=== PATIENT | female | born 1965 | race Hispanic/Latino ===

== ENCOUNTER 2019-10-10 11:53 | Inpatient (IN) | payer MEDICAID ==
[~2019-10-10] VITALS: Ht 160 cm; Wt 80.8 kg
[2019-10-10] MEDS ORDERED: SODIUM CHLORIDE 0.9% 1000ML 1,000 ML IV ONE ×2 (12:27→12:41)
[2019-10-10 12:34] LABS: BASOPHILS % (AUTO) 1.1 % (0.0-5.0); EOSINOPHILS % (AUTO) 1.1 % (0.0-8.0); HEMATOCRIT 30.1 % (36-48); LYMPHOCYTES % (AUTO) 29.2 % (21.0-51.0); MEAN CORPUSCULAR HEMOGLOBIN 29.6 pg (27.0-33.0); MEAN CORPUSCULAR HGB CONC 33.9 g/dL (32.0-36.0); MEAN CORPUSCULAR VOLUME 87.2 fL (79-99); MONOCYTES % (AUTO) 9.7 % (3.0-13.0); NEUTROPHILS % (AUTO) 45.6 % (40.0-77.0); NUCLEATED RED BLOOD CELLS 5.5 % (0.0-0.19); PLATELET COUNT (AUTO) 45 K/uL (130-400); RED BLOOD CELL COUNT(AUTO) 3.45 MIL/uL (4.00-5.50); RED CELL DISTRIBUTION WIDTH 13.7 % (11.0-15.5); WHITE BLOOD COUNT (AUTO) 17.1 K/uL (4.8-10.8)
[2019-10-10] MEDS ORDERED: DEXAMETHASONE SOD PHOSPHATE 10MG/ML 1ML VIAL ONE (12:40)
[2019-10-10] MEDS ORDERED: CEFTRIAXONE SODIUM 1 GM ONE (12:41)
[2019-10-10] MEDS ORDERED: AZITHROMYCIN 500MG+NS 250ML 250 ML IV ONE (12:41)
[2019-10-10 12:43] LABS: CARBON DIOXIDE 20 mmol/L (21-32); CHLORIDE 99 mmol/L (101-111); CREATININE 0.9 mg/dL (0.5-1.5); GLOMERULAR FILTR. RATE CALC 70 mL/min (>60); GLUCOSE,RANDOM 161 mg/dL (70-105); POTASSIUM 3.5 mmol/L (3.5-5.1); SODIUM SERUM 135 mmol/L (136-145); UREA NITROGEN, BLOOD 25 mg/dL (7-18)
[2019-10-10] MEDS ORDERED: ONDANSETRON HCL 4 MG/2 ML VIAL ONE ×2 (12:52→21:37)
[2019-10-10 12:53] LABS: INR 1.14 (0.85-1.15); PARTIAL THROMBOPLASTIN TIME 33.6 SEC (26.3-35.5); PROTHROMBIN TIME 12.2 SEC (9.6-11.6)
[2019-10-10 12:54] LABS: ALANINE AMINOTRANSFERASE 66 U/L (12-78); ALBUMIN 1.8 g/dL (3.5-5.0); ASPARTATE AMINOTRANSFERASE 156 U/L (10-37); BILIRUBIN,TOTAL 1.2 mg/dL (0.2-1.0); CREATINE KINASE, TOTAL 63 U/L (21-232); MYOGLOBIN 83 ng/mL (10-92); TOTAL PROTEIN, SERUM 5.7 g/dL (6.0-8.3); TROPONIN I < 0.04 ng/mL (0.00-0.06)
[2019-10-10 13:00] LABS: B-TYPE NATRIURETIC PEPTIDE 7 pg/mL (0-100)
[2019-10-10 13:45] LABS: BAND NEUTROPHILS % (MANUAL) 9 % (0-2); BASOPHILS % (MANUAL) 1 % (0-2); EOSINOPHILS % (MANUAL) 2 % (1-6); LYMPHOCYTES % (MANUAL) 19 % (22-44); MAN.DIFF COMMENT-IMPRESSION MANUAL DIFFERENTIAL; MONOCYTES % (MANUAL) 8 % (2-9); MYELOCYTES % 1 % (0-0); REACTIVE LYMPHOCYTES 4 % (0-0); SEGMENTED NEUTROPHILS % 56 % (40-70)
[2019-10-10] MEDS ORDERED: DOXYCYCLINE 100MG+NS 250ML IV SCH (17:00)
[2019-10-10] MEDS ORDERED: VANCOMYCIN PROTOCOL PER PHARMACY IV SCH (17:00)
[2019-10-10] MEDS ORDERED: ACETAMINOPHEN 325 MG TAB PO PRN ×2 (17:00)
[2019-10-10] MEDS ORDERED: VANCOMYCIN 1.5 GM in SODIUM CHLORIDE 0.9% 250 ML IV ONE (19:45)
[2019-10-10] MEDS ORDERED: ERGOCALCIFEROL (VITAMIN D2) 50,000 UNIT CAPSULE PO ONE (19:45)
[2019-10-10] MEDS ORDERED: ZINC SULFATE 220 CAPSULE ONE (20:33)
[2019-10-10] MEDS ORDERED: ERGOCALCIFEROL (VITAMIN D2) 50,000 UNIT CAPSULE ONE (20:33)
[2019-10-10] MEDS ORDERED: ASCORBIC ACID 500 MG TAB ONE (20:33)
[2019-10-10] MEDS ORDERED: METHYLPREDNISOLONE SOD SUCC 40MG/ML 1ML ONE (20:33)
[2019-10-10] MEDS ORDERED: FAMOTIDINE/PF 20 MG/2 ML VIAL IV ONE (20:34)
[2019-10-10] MEDS ORDERED: ENOXAPARIN SODIUM 40 MG/0.4 ML SYRINGE SQ ONE (20:34)
[2019-10-10] MEDS ORDERED: ENOXAPARIN SODIUM 40 MG/0.4 ML SYRINGE SQ SCH (21:00)
[2019-10-11] MEDS: CEFEPIME HCL 2 GM VIAL IVP SCH ×3 (01:00→17:00)
[2019-10-11] MEDS ORDERED: CEFEPIME HCL 2 GM VIAL ONE ×2 (01:19→07:53)
[2019-10-11] MEDS ORDERED: DOXYCYCLINE 100MG+NS 250ML 250 ML IV ONE (01:19)
[2019-10-11] MEDS: SODIUM CHLORIDE 0.9% 1000ML 1,000 ML IV SCH ×2 (03:00→13:15)
[2019-10-11] MEDS ORDERED: VANCOMYCIN 1GM+NS 250ML 250 ML IV SCH (06:00)
[2019-10-11 06:50] LABS: ALBUMIN 1.4 g/dL (3.5-5.0); BILIRUBIN,TOTAL 0.6 mg/dL (0.2-1.0); CREATININE 0.6 mg/dL (0.5-1.5); POTASSIUM 3.6 mmol/L (3.5-5.1); TOTAL PROTEIN, SERUM 4.6 g/dL (6.0-8.3)
[2019-10-11 06:52] LABS: BASOPHILS % (AUTO) 0.8 % (0.0-5.0); HEMATOCRIT 24.5 % (36-48); LYMPHOCYTES % (AUTO) 29.1 % (21.0-51.0); MEAN CORPUSCULAR HEMOGLOBIN 29.6 pg (27.0-33.0); MEAN CORPUSCULAR HGB CONC 33.1 g/dL (32.0-36.0); MEAN CORPUSCULAR VOLUME 89.4 fL (79-99); MONOCYTES % (AUTO) 8.1 % (3.0-13.0); NEUTROPHILS % (AUTO) 49.2 % (40.0-77.0); NUCLEATED RED BLOOD CELLS 3.6 % (0.0-0.19); PLATELET COUNT (AUTO) 27 K/uL (130-400); RED BLOOD CELL COUNT(AUTO) 2.74 MIL/uL (4.00-5.50)
[2019-10-11 07:06] LABS: BILIRUBIN,URINE MODERATE (NEGATIVE); COLOR,URINE BROWN (YELLOW); GLUCOSE, URINE (UA) 100 mg/dL (NEGATIVE); KETONES,URINE 15 mg/dL (NEGATIVE); LEUKOCYTE ESTERASE ,URINE NEGATIVE (NEGATIVE); NITRATE,URINE POSITIVE (NEGATIVE); OCCULT BLOOD,URINE NEGATIVE (NEGATIVE); PH,URINE 6.5 (5.0-8.0); PROTEIN,URINE 30 mg/dL (NEGATIVE); UROBILINOGEN,URINE 0.2 mg/dL (0.2-1.0)
[2019-10-11 07:20] LABS: APPEARANCE,URINE SLIGHTLY CLOUDY (CLEAR)
[2019-10-11 07:37] LABS: CRP QUANTITATIVE 104.2 mg/L (0.00-9.0)
[2019-10-11 07:38] LABS: BACTERIA,URINE Few /HPF (None Seen)
[2019-10-11] MEDS ORDERED: METHYLPREDNISOLONE SOD SUCC 40MG/ML 1ML ONE ×2 (07:52→20:43)
[2019-10-11] MEDS ORDERED: ZINC SULFATE 220 CAPSULE ONE (07:53)
[2019-10-11] MEDS ORDERED: ASCORBIC ACID 500 MG TAB ONE (07:53)
[2019-10-11] MEDS ORDERED: ENOXAPARIN SODIUM 40 MG/0.4 ML SYRINGE SQ ONE (07:53)
[2019-10-11] MEDS ORDERED: FAMOTIDINE/PF 20 MG/2 ML VIAL IV ONE ×2 (07:54→20:43)
[2019-10-11] MEDS ORDERED: ENOXAPARIN SODIUM 40 MG/0.4 ML SYRINGE SQ SCH (09:00)
[2019-10-11] MEDS: ASCORBIC ACID 500 MG TAB PO SCH (09:00)
[2019-10-11] MEDS ORDERED: ENOXAPARIN SODIUM 30 MG/0.3 ML SQ SCH (09:00)
[2019-10-11] MEDS: METHYLPREDNISOLONE SOD SUCC 40MG/ML 1ML IVP SCH ×3 (09:00→21:00)
[2019-10-11] MEDS: FAMOTIDINE/PF 20 MG/2 ML VIAL IV SCH ×2 (09:00→21:00)
[2019-10-11] MEDS: ZINC SULFATE 220 CAPSULE PO SCH (12:00)
[2019-10-11] MEDS ORDERED: ONDANSETRON HCL 4 MG/2 ML VIAL ONE (12:13)
[2019-10-11] MEDS ORDERED: ONDANSETRON HCL 4 MG/2 ML VIAL IVP PRN (15:45)
[2019-10-11] MEDS ORDERED: IOHEXOL 350 MG/ML 100ML INFUS..BTL IV ONE (16:05)
--- NOTE | 2019-10-11 19:30 | NUR ---
PM Assessment Received pt with NS at 75cc/hr infusing well, routine assessment done, plan of care discuss, made aware pending labs in AM with pending consult with Dr. Moy as claimed still was not seen by MD. Pt showed a mass to the right anterior side of her upper thigh, hard to palpate, margin marking done, per pt claimed that Dr. Moy did a biopsy on such area before, with the mass slowly growing. Pt made aware we will notify MD about it. Pt currently denies discomfort on O2 at 4L/NC, claimed breathing just fine.
[2019-10-11 20:00] VITALS: BP 118/60
[2019-10-12] VITALS: BP 109/62
[2019-10-12] MEDS: CEFEPIME HCL 2 GM VIAL IVP SCH ×3 (01:00→17:00)
[2019-10-12] MEDS ORDERED: CEFEPIME HCL 2 GM VIAL ONE ×2 (01:39→08:48)
[2019-10-12] MEDS: SODIUM CHLORIDE 0.9% 1000ML 1,000 ML IV SCH ×2 (02:35→15:55)
[2019-10-12 04:00] VITALS: BP 105/61
[2019-10-12] MEDS ORDERED: VANCOMYCIN 1GM+NS 250ML 250 ML IV ONE ×2 (05:10→18:52)
[2019-10-12 05:35] LABS: BASOPHILS % (AUTO) 0.9 % (0.0-5.0); EOSINOPHILS % (AUTO) 0.4 % (0.0-8.0); HEMATOCRIT 24.4 % (36-48); LYMPHOCYTES % (AUTO) 25.5 % (21.0-51.0); MEAN CORPUSCULAR HGB CONC 32.8 g/dL (32.0-36.0); MEAN CORPUSCULAR VOLUME 88.4 fL (79-99); MONOCYTES % (AUTO) 10.3 % (3.0-13.0); NEUTROPHILS % (AUTO) 50.8 % (40.0-77.0); NUCLEATED RED BLOOD CELLS 4.9 % (0.0-0.19); PLATELET COUNT (AUTO) 30 K/uL (130-400); RED BLOOD CELL COUNT(AUTO) 2.76 MIL/uL (4.00-5.50); RED CELL DISTRIBUTION WIDTH 14.2 % (11.0-15.5); WHITE BLOOD COUNT (AUTO) 14.4 K/uL (4.8-10.8)
[2019-10-12 06:04] LABS: ALBUMIN 1.5 g/dL (3.5-5.0); BILIRUBIN,TOTAL 0.7 mg/dL (0.2-1.0); CREATININE 0.7 mg/dL (0.5-1.5); POTASSIUM 3.8 mmol/L (3.5-5.1); TOTAL PROTEIN, SERUM 4.5 g/dL (6.0-8.3)
[2019-10-12] MEDS ORDERED: LOPERAMIDE HCL 2 MG CAP PO SCH ×2 (08:00→18:00)
[2019-10-12] MEDS ORDERED: METHYLPREDNISOLONE SOD SUCC 40MG/ML 1ML ONE ×2 (08:47→19:56)
[2019-10-12] MEDS ORDERED: ASCORBIC ACID 500 MG TAB ONE (08:47)
[2019-10-12] MEDS ORDERED: FAMOTIDINE/PF 20 MG/2 ML VIAL IV ONE ×2 (08:48→19:57)
[2019-10-12] MEDS ORDERED: LOPERAMIDE HCL 2 MG CAP PO ONE ×2 (08:48→18:24)
[2019-10-12] MEDS ORDERED: ZINC SULFATE 220 CAPSULE ONE (08:48)
[2019-10-12] MEDS: ASCORBIC ACID 500 MG TAB PO SCH (09:00)
[2019-10-12] MEDS: FAMOTIDINE/PF 20 MG/2 ML VIAL IV SCH ×2 (09:00→21:00)
[2019-10-12] MEDS: METHYLPREDNISOLONE SOD SUCC 40MG/ML 1ML IVP SCH ×3 (09:00→21:00)
[2019-10-12] MEDS: ZINC SULFATE 220 CAPSULE PO SCH (12:00)
[2019-10-12] MEDS ORDERED: ONDANSETRON HCL 4 MG/2 ML VIAL ONE (13:29)
[2019-10-12] MEDS ORDERED: LACTOBACILLUS RHAMNOSUS GG 1 EACH CAP.SPRINK PO SCH (18:00)
[2019-10-12] MEDS ORDERED: METRONIDAZOLE 500 MG TABLET PO SCH (18:00)
[2019-10-12] MEDS: METRONIDAZOLE 500 MG TABLET PO SCH (18:00)
--- NOTE | 2019-10-12 19:12 | NUR ---
UNABLE TO REACH FAMILY SW attempted to contact patient's family to complete assessment but was only able to leave a message. SW will attempt to reach at a later time.
[2019-10-12] MEDS: LACTOBACILLUS RHAMNOSUS GG 1 EACH CAP.SPRINK PO SCH (21:00)
[2019-10-13] MEDS ORDERED: CEFEPIME HCL 2 GM VIAL ONE ×3 (00:18→17:05)
[2019-10-13] MEDS ORDERED: SODIUM CHLORIDE 0.9% 50 ML IV ONE ×3 (00:46→17:06)
[2019-10-13] MEDS: CEFEPIME HCL 2 GM VIAL IVP SCH ×3 (01:00→17:00)
[2019-10-13] MEDS: METRONIDAZOLE 500 MG TABLET PO SCH ×3 (02:00→18:00)
[2019-10-13] MEDS: SODIUM CHLORIDE 0.9% 1000ML 1,000 ML IV SCH ×2 (05:15→18:35)
[2019-10-13] MEDS ORDERED: VANCOMYCIN 1GM+NS 250ML 250 ML IV ONE ×2 (05:33→17:05)
[2019-10-13] MEDS: FAMOTIDINE/PF 20 MG/2 ML VIAL IV SCH ×2 (09:00→21:00)
[2019-10-13] MEDS: ASCORBIC ACID 500 MG TAB PO SCH (09:00)
[2019-10-13] MEDS: METHYLPREDNISOLONE SOD SUCC 40MG/ML 1ML IVP SCH ×3 (09:00→21:00)
[2019-10-13] MEDS: LACTOBACILLUS RHAMNOSUS GG 1 EACH CAP.SPRINK PO SCH ×3 (09:00→21:00)
[2019-10-13 09:10] LABS: BASOPHILS % (AUTO) 0.7 % (0.0-5.0); EOSINOPHILS % (AUTO) 0.2 % (0.0-8.0); HEMATOCRIT 23.8 % (36-48); LYMPHOCYTES % (AUTO) 22.2 % (21.0-51.0); MEAN CORPUSCULAR HEMOGLOBIN 29.6 pg (27.0-33.0); MEAN CORPUSCULAR HGB CONC 33.6 g/dL (32.0-36.0); MEAN CORPUSCULAR VOLUME 88.1 fL (79-99); MONOCYTES % (AUTO) 9.9 % (3.0-13.0); NEUTROPHILS % (AUTO) 55.3 % (40.0-77.0); NUCLEATED RED BLOOD CELLS 6.2 % (0.0-0.19); PLATELET COUNT (AUTO) 20 K/uL (130-400); RED CELL DISTRIBUTION WIDTH 14.4 % (11.0-15.5); WHITE BLOOD COUNT (AUTO) 13.2 K/uL (4.8-10.8)
[2019-10-13] MEDS ORDERED: ASCORBIC ACID 500 MG TAB ONE (09:43)
[2019-10-13] MEDS ORDERED: METHYLPREDNISOLONE SOD SUCC 40MG/ML 1ML ONE ×3 (09:43→20:36)
[2019-10-13] MEDS ORDERED: METRONIDAZOLE 500 MG TABLET ONE ×2 (09:43→17:05)
[2019-10-13] MEDS ORDERED: ZINC SULFATE 220 CAPSULE ONE (09:43)
[2019-10-13] MEDS ORDERED: FAMOTIDINE/PF 20 MG/2 ML VIAL IV ONE ×2 (09:44→20:36)
[2019-10-13 09:55] LABS: ALBUMIN 1.5 g/dL (3.5-5.0); BAND NEUTROPHILS % (MANUAL) 9 % (0-2); BILIRUBIN,TOTAL 0.7 mg/dL (0.2-1.0); CREATININE 0.7 mg/dL (0.5-1.5); CRP QUANTITATIVE 33.9 mg/L (0.00-9.0); EOSINOPHILS % (MANUAL) 1 % (1-6); LYMPHOCYTES % (MANUAL) 18 % (22-44); MAN.DIFF COMMENT-IMPRESSION MANUAL DIFFERENTIAL; MONOCYTES % (MANUAL) 9 % (2-9); POTASSIUM 3.7 mmol/L (3.5-5.1); SEGMENTED NEUTROPHILS % 63 % (40-70); TOTAL PROTEIN, SERUM 4.3 g/dL (6.0-8.3)
[2019-10-13] MEDS ORDERED: ONDANSETRON HCL 4 MG/2 ML VIAL ONE ×2 (11:36→18:05)
[2019-10-13] MEDS: ZINC SULFATE 220 CAPSULE PO SCH (12:00)
--- NOTE | 2019-10-13 14:11 | NUR ---
cm note call made to listed phone# unable to reach pt/family. info obtained from chart review. pt resides at home with spouse, independent with adls and self care. no dme. no services. [place] [facility] [place] [facility]. Addendum: 10/13/19 at 1415 by ROSITA GUZMAN Amended: Links added.
[2019-10-13] MEDS ORDERED: APIXABAN 2.5 MG TABLET PO ONE (17:17)
[2019-10-13] MEDS ORDERED: APIXABAN 5 MG TABLET PO SCH (21:00)
[2019-10-14] MEDS: CEFEPIME HCL 2 GM VIAL IVP SCH ×3 (01:00→17:00)
[2019-10-14] MEDS ORDERED: METRONIDAZOLE 500 MG TABLET ONE ×2 (01:17→08:10)
[2019-10-14] MEDS ORDERED: CEFEPIME HCL 2 GM VIAL ONE ×2 (01:18→08:29)
[2019-10-14] MEDS: METRONIDAZOLE 500 MG TABLET PO SCH ×3 (02:00→18:00)
[2019-10-14] MEDS ORDERED: VANCOMYCIN 1GM+NS 250ML 250 ML IV ONE ×2 (05:33→18:10)
[2019-10-14] MEDS ORDERED: ONDANSETRON HCL 4 MG/2 ML VIAL ONE (06:23)
[2019-10-14] MEDS ORDERED: ACETAMINOPHEN 325 MG TAB ONE (06:28)
[2019-10-14 06:33] LABS: ALBUMIN 1.4 g/dL (3.5-5.0); BILIRUBIN,TOTAL 0.8 mg/dL (0.2-1.0); CREATININE 0.7 mg/dL (0.5-1.5); MAGNESIUM 1.8 mg/dL (1.80-2.40); POTASSIUM 4.1 mmol/L (3.5-5.1); TOTAL PROTEIN, SERUM 4.2 g/dL (6.0-8.3)
[2019-10-14] MEDS: SODIUM CHLORIDE 0.9% 1000ML 1,000 ML IV SCH ×2 (07:55→21:15)
[2019-10-14] MEDS ORDERED: ASCORBIC ACID 500 MG TAB ONE (08:10)
[2019-10-14] MEDS ORDERED: METHYLPREDNISOLONE SOD SUCC 40MG/ML 1ML ONE ×2 (08:10→20:57)
[2019-10-14] MEDS ORDERED: ZINC SULFATE 220 CAPSULE ONE (08:11)
[2019-10-14] MEDS ORDERED: FAMOTIDINE/PF 20 MG/2 ML VIAL IV ONE ×2 (08:30→20:58)
[2019-10-14] MEDS: LACTOBACILLUS RHAMNOSUS GG 1 EACH CAP.SPRINK PO SCH ×3 (09:00→21:00)
[2019-10-14] MEDS: ASCORBIC ACID 500 MG TAB PO SCH (09:00)
[2019-10-14] MEDS: FAMOTIDINE/PF 20 MG/2 ML VIAL IV SCH ×2 (09:00→21:00)
[2019-10-14] MEDS: METHYLPREDNISOLONE SOD SUCC 40MG/ML 1ML IVP SCH ×3 (09:00→21:00)
[2019-10-14] MEDS: ALBUTEROL INHALER 90MCG/INH IH SCH ×5 (09:15→22:00)
[2019-10-14] MEDS: ZINC SULFATE 220 CAPSULE PO SCH (12:00)
[2019-10-14] MEDS ORDERED: FUROSEMIDE 10 MG/ML 4ML VIAL ONE ×2 (12:44→20:57)
[2019-10-14] MEDS: FUROSEMIDE 10 MG/ML 4ML VIAL IVP SCH (13:00)
[2019-10-14] MEDS ORDERED: IOHEXOL-350 75 ML VIAL IV ONE (18:22)
[2019-10-14] MEDS ORDERED: ENOXAPARIN SODIUM 40 MG/0.4 ML SYRINGE SQ ONE (20:58)
[2019-10-15] MEDS ORDERED: METRONIDAZOLE 500MG/100ML BAG 100 ML ONE (00:19)
[2019-10-15] MEDS ORDERED: ALBUTEROL INHALER 90MCG/INH IH ONE (00:19)
[2019-10-15] MEDS ORDERED: CEFTRIAXONE SODIUM 1 GM ONE (00:19)
[2019-10-15] MEDS ORDERED: ACETAMINOPHEN 325 MG TAB ONE ×2 (00:20→04:37)
[2019-10-15] MEDS ORDERED: ONDANSETRON HCL 4 MG/2 ML VIAL ONE ×4 (00:51→15:25)
[2019-10-15] MEDS: FUROSEMIDE 10 MG/ML 4ML VIAL IVP SCH ×3 (01:00→23:41)
[2019-10-15] MEDS: CEFEPIME HCL 2 GM VIAL IVP SCH ×4 (01:00→23:41)
[2019-10-15] MEDS: METRONIDAZOLE 500 MG TABLET PO SCH ×3 (02:00→18:00)
[2019-10-15] MEDS: ALBUTEROL INHALER 90MCG/INH IH SCH ×7 (02:00→23:50)
[2019-10-15] MEDS ORDERED: VANCOMYCIN 1GM+NS 250ML 250 ML IV ONE ×2 (04:23→18:04)
[2019-10-15] MEDS ORDERED: MORPHINE SULFATE 2 MG/ML 1ML SYG IVP PRN (04:45)
[2019-10-15] MEDS ORDERED: MORPHINE SULFATE 2 MG/ML 1ML SYG ONE ×2 (04:51→15:25)
[2019-10-15] MEDS ORDERED: METHYLPREDNISOLONE SOD SUCC 40MG/ML 1ML ONE ×2 (07:38→20:10)
[2019-10-15] MEDS ORDERED: ASCORBIC ACID 500 MG TAB ONE (07:38)
[2019-10-15] MEDS ORDERED: FUROSEMIDE 10 MG/ML 4ML VIAL ONE (07:39)
[2019-10-15] MEDS ORDERED: METRONIDAZOLE 500 MG TABLET ONE (07:39)
[2019-10-15] MEDS ORDERED: CEFEPIME HCL 2 GM VIAL ONE (07:39)
[2019-10-15] MEDS ORDERED: ZINC SULFATE 220 CAPSULE ONE (07:39)
[2019-10-15] MEDS ORDERED: FAMOTIDINE/PF 20 MG/2 ML VIAL IV ONE (07:40)
[2019-10-15] MEDS ORDERED: ENOXAPARIN SODIUM 40 MG/0.4 ML SYRINGE SQ ONE (07:40)
[2019-10-15] MEDS: METHYLPREDNISOLONE SOD SUCC 40MG/ML 1ML IVP SCH ×3 (09:00→21:00)
[2019-10-15] MEDS: FAMOTIDINE/PF 20 MG/2 ML VIAL IV SCH ×2 (09:00→21:00)
[2019-10-15] MEDS: LACTOBACILLUS RHAMNOSUS GG 1 EACH CAP.SPRINK PO SCH ×3 (09:00→21:00)
[2019-10-15] MEDS: ENOXAPARIN SODIUM 40 MG/0.4 ML SYRINGE SQ SCH (09:00)
[2019-10-15] MEDS: ASCORBIC ACID 500 MG TAB PO SCH (09:00)
[2019-10-15] MEDS: SODIUM CHLORIDE 0.9% 1000ML 1,000 ML IV SCH ×2 (10:35→23:41)
[2019-10-15 11:54] LABS: BASOPHILS % (AUTO) 0.8 % (0.0-5.0); EOSINOPHILS % (AUTO) 1.3 % (0.0-8.0); HEMATOCRIT 25.8 % (36-48); LYMPHOCYTES % (AUTO) 32.9 % (21.0-51.0); MEAN CORPUSCULAR HEMOGLOBIN 29.4 pg (27.0-33.0); MEAN CORPUSCULAR HGB CONC 33.3 g/dL (32.0-36.0); MEAN CORPUSCULAR VOLUME 88.1 fL (79-99); MONOCYTES % (AUTO) 7.4 % (3.0-13.0); NUCLEATED RED BLOOD CELLS 9.2 % (0.0-0.19); PLATELET COUNT (AUTO) 23 K/uL (130-400); RED BLOOD CELL COUNT(AUTO) 2.93 MIL/uL (4.00-5.50); RED CELL DISTRIBUTION WIDTH 14.9 % (11.0-15.5); WHITE BLOOD COUNT (AUTO) 15.7 K/uL (4.8-10.8)
[2019-10-15] MEDS: ZINC SULFATE 220 CAPSULE PO SCH (12:00)
[2019-10-15 12:38] LABS: ALBUMIN 1.4 g/dL (3.5-5.0); BILIRUBIN,TOTAL 0.9 mg/dL (0.2-1.0); CREATININE 0.9 mg/dL (0.5-1.5); POTASSIUM 4.4 mmol/L (3.5-5.1); TOTAL PROTEIN, SERUM 4.1 g/dL (6.0-8.3)
[2019-10-15 13:11] LABS: BAND NEUTROPHILS % (MANUAL) 5 % (0-2); LYMPHOCYTES % (MANUAL) 9 % (22-44); MAN.DIFF COMMENT-IMPRESSION MANUAL DIFFERENTIAL; MONOCYTES % (MANUAL) 3 % (2-9); SEGMENTED NEUTROPHILS % 83 % (40-70)
[2019-10-15 13:12] LABS: PLATELET MORPHOLOGY COMMENT MARKED DECREASE
[2019-10-15] MEDS ORDERED: SODIUM CHLORIDE 0.9% 1000ML 1,000 ML IV SCH (13:30)
[2019-10-15] MEDS ORDERED: SODIUM CHLORIDE 0.9% 100 ML IV ONE (17:26)
[2019-10-15] MEDS ORDERED: FAMOTIDINE 20MG TAB 20 MG TAB ONE (20:10)
[2019-10-15 23:35] VITALS: BP 134/77
[2019-10-16] VITALS (27 sets, daily range): BP systolic 69–205; BP diastolic 22–103
[2019-10-16] MEDS: METRONIDAZOLE 500 MG TABLET PO SCH ×3 (00:26→16:38)
[2019-10-16] MEDS ORDERED: ALPRAZOLAM 0.5 MG TABLET ONE (02:23)
[2019-10-16] MEDS ORDERED: ALPRAZOLAM 0.5 MG TABLET PO ONE (02:30)
--- NOTE | 2019-10-16 03:03 | NUR ---
SPOKE WITH BRENDEN, RESPIRATORY THERAPIST, ON THE PHONE TO ASK HIM FOR THE INCENTIVE SPIROMETER. HE SAID HE WOULD BRING IT
--- NOTE | 2019-10-16 05:40 | NUR ---
patient anxious, diaphoretic, and pale. paged [facility] and she ordered a stat arterial blood gas and nonrebreather 15 liters. i called a rapid response. [facility] ordered a bolus of 500 ml of sodium chloride which we gave on the 20 gauge iv catheter on her left chest. we were having trouble starting another IV, we attempted about 20 times and an ER nurse tried osseous route and failed. Jo placed a 22 gauge iv catheter on her right hand and gave norepinephrine bitarte drip 18 mcg/min. 2 ampules of sodium chloride were given in the 20 gauge iv catheter at 0550. another 2 ampules of sodium chloride were diluted in 1 liter of dextrose 5%. a total of 1.5 liters of sodium chloride bolus were given (500 ml each bolus). an EKG stat was ordered along with a rainbow of labs. the arterial blood gas results were abnormal. patient's blood pressure before the levophed was 47/21 and after the levophen and 1.5 liters bolus it was 121/77. patient's accucheck was 154. patient claimed she couldn't see and was still having difficulty breathing and using her intracostal muscles to breath. patient taken by david loivas, to room 1 B in daypatient. i called report to shanna at 0630 am and patient taken at 06:40.
[2019-10-16] MEDS ORDERED: SODIUM CHLORIDE 0.9% 500ML 500 ML IV ONE (05:49)
[2019-10-16] MEDS ORDERED: NOREPINEPHRINE BITARTRATE 1 MG/1 ML ML IV ONE (05:55)
[2019-10-16 05:58] LABS: ABG BASE EXCESS -26.2 mmol/L (-2.0-3.0); ABG OXYGEN SATURATION 96.4 % (95.0-99.0); ABG PCO2 35 mmHg (32-45)
[2019-10-16] MEDS: ALBUTEROL INHALER 90MCG/INH IH SCH ×2 (06:00→10:00)
[2019-10-16] MEDS ORDERED: SODIUM BICARB 50MEQ 50ML VIAL ONE ×2 (06:04→07:21)
[2019-10-16] MEDS ORDERED: DEXTROSE 5%-WATER 1,000 ML IV ONE (06:27)
[2019-10-16 07:30] LABS: CARBON DIOXIDE 11 mmol/L (21-32); CHLORIDE 104 mmol/L (101-111); CREATININE 1.3 mg/dL (0.5-1.5); GLOMERULAR FILTR. RATE CALC 46 mL/min (>60); GLUCOSE,RANDOM 183 mg/dL (70-105); POTASSIUM 4.4 mmol/L (3.5-5.1); SODIUM SERUM 137 mmol/L (136-145); UREA NITROGEN, BLOOD 54 mg/dL (7-18)
[2019-10-16 07:35] LABS: HEMATOCRIT 24.7 % (36-48); MEAN CORPUSCULAR HEMOGLOBIN 28.9 pg (27.0-33.0); MEAN CORPUSCULAR VOLUME 90.5 fL (79-99); NUCLEATED RED BLOOD CELLS 7.6 % (0.0-0.19); RED BLOOD CELL COUNT(AUTO) 2.73 MIL/uL (4.00-5.50); RED CELL DISTRIBUTION WIDTH 15.4 % (11.0-15.5)
[2019-10-16 07:42] LABS: ALANINE AMINOTRANSFERASE 187 U/L (12-78); ALBUMIN 1.2 g/dL (3.5-5.0); BILIRUBIN,TOTAL 1.3 mg/dL (0.2-1.0); CREATINE KINASE, TOTAL 274 U/L (21-232); MYOGLOBIN 794 ng/mL (10-92); TOTAL PROTEIN, SERUM 3.4 g/dL (6.0-8.3); TROPONIN I < 0.04 ng/mL (0.00-0.06)
[2019-10-16 07:52] LABS: WHITE BLOOD COUNT (AUTO) 34.4 K/uL (4.8-10.8)
[2019-10-16 07:54] LABS: ASPARTATE AMINOTRANSFERASE 794 U/L (10-37)
[2019-10-16 08:12] LABS: INR 2.37 (0.85-1.15); PARTIAL THROMBOPLASTIN TIME 74.1 SEC (26.3-35.5); PROTHROMBIN TIME 24.8 SEC (9.6-11.6)
--- NOTE | 2019-10-16 08:57 | NUR ---
CONTACTED DR. FITZGERALD BY TEXT TO ADVISE OF PATIENT STATUS STATES HE HAD BEEN IN ER YESTERDAY AND DISCUSSED PATIENT W MD AND NURSES. ADVISED HIM OF PATIENT DECOMPENSATION THIS MORNING
[2019-10-16] MEDS: ASCORBIC ACID 500 MG TAB PO SCH (09:00)
[2019-10-16] MEDS: LACTOBACILLUS RHAMNOSUS GG 1 EACH CAP.SPRINK PO SCH (09:00)
[2019-10-16] MEDS ORDERED: SODIUM CHLORIDE 0.9% 1000ML 1,000 ML IV SCH (09:00)
[2019-10-16] MEDS: CEFEPIME HCL 2 GM VIAL IVP SCH (09:00)
[2019-10-16] MEDS ORDERED: [UNRECOGNIZED DRUG - OTHER] IV ONE (09:00)
[2019-10-16] MEDS: ENOXAPARIN SODIUM 40 MG/0.4 ML SYRINGE SQ SCH (09:00)
[2019-10-16] MEDS ORDERED: NOREPINEPHRINE IV ONE (09:00)
--- NOTE | 2019-10-16 09:04 | NUR ---
ADVISED HEATHER ANDERSON THAT DR. FITZGERALD IS RECOMMENDING PALLIATIVE MEDICINE. CM TO FOLLOW FOR ORDERS
[2019-10-16] MEDS: VASOPRESSIN 40 UNITS in SODIUM CHLORIDE 0.9% 40 ML IV SCH ×2 (09:58→20:06)
[2019-10-16] MEDS: METHYLPREDNISOLONE SOD SUCC 40MG/ML 1ML IVP SCH ×2 (10:04→14:01)
[2019-10-16 10:19] LABS: ABG BASE EXCESS -17.9 mmol/L (-2.0-3.0); ABG HCO3 8.9 mmol/L (21.0-28.0); ABG OXYGEN SATURATION 97.1 % (95.0-99.0); ABG PCO2 25 mmHg (32-45)
--- NOTE | 2019-10-16 10:26 | NUR ---
STATUS REPORT- UPON MY ARRIVAL AT 0700.. I NOTED PT TO BE EXTREMELY SOB/TACHYPNEIC/LABORED. WAS ON 100% NRB. BP BEGAN TO FALL. HAS LIMITED IV ACCESS AND UNABLE TO START NEW IV. CURRENTLY PICC LINE PLACEMENT IN PROGRESS. PT WAS PLACED ON BIPAP FOR RESP SUPPORT. IT HELPED CALM HER DOWN. RESP RATE NOW 16-20. BP SUPPORTED WITH LEVOPHED(20MCG/MIN) AND VASOPRESSIN 90.04 UNITS/MIN) DRIPS2 LITERS NS INFUSING. I HAD CONTACT AT BEDSIDE WITH [facility] AND [facility]. ORDERS HAVE BEEN RECEIVED AND CARRIED OUT.PLEASE REFER TO V/S FOR STATUS
--- NOTE | 2019-10-16 10:47 | NUR ---
CM Note: called daughter CM called daughter on face sheet, Kimberley Bean , left voicemail. Pending daughter to call back. Unable to find other contact number. Cm to cont to follow up.
[2019-10-16] MEDS: VANCOMYCIN 1GM+NS 250ML 250 ML IV SCH ×2 (11:11→21:21)
[2019-10-16] MEDS: FAMOTIDINE/PF 20 MG/2 ML VIAL IV SCH ×2 (11:11→20:37)
[2019-10-16] MEDS: SODIUM CHLORIDE 0.9% 1000ML 1,000 ML IV SCH (11:11)
[2019-10-16] MEDS ORDERED: SODIUM BICARB 8.4% 50ML SYRING 100 MEQ in DEXTROSE 5%-WATER 900 ML IV SCH (14:00)
[2019-10-16] MEDS: MEROPENEM 1 GM VIAL IVP SCH ×2 (14:01→20:37)
[2019-10-16] MEDS: NOREPINEPHRINE BITARTRATE 8 MG in SODIUM CHLORIDE 0.9% 250 ML IV SCH ×2 (14:29→19:24)
[2019-10-16] MEDS ORDERED: CALCIUM GLUCONATE 1 GM/10 ML VIAL IV ONE ×2 (14:52→14:58)
[2019-10-16] MEDS ORDERED: FENTANYL CITRATE PF 50 MCG/1 ML 2ML VIAL ONE (14:52)
[2019-10-16] MEDS ORDERED: MIDAZOLAM HCL 1 MG/ML 2ML VIAL ONE (14:53)
[2019-10-16] MEDS ORDERED: FENTANYL CITRATE PF 50 MCG/1 ML 2ML VIAL IVP ONE (15:00)
[2019-10-16] MEDS ORDERED: MIDAZOLAM HCL 1 MG/ML 2ML VIAL IVP ONE (15:00)
[2019-10-16] MEDS ORDERED: CALCIUM GLUCONATE 1 GM/10 ML VIAL IV SCH (15:00)
[2019-10-16] MEDS ORDERED: SODIUM BICARB 50MEQ 50ML VIAL IV STA (15:00)
--- NOTE | 2019-10-16 15:30 | NUR ---
PT DETERIORATED. BECAME MORE OBTUNDED. AGONAL BREATHING. DR GUSTAFSON INTUBATED PT. SHE WAS GIVEN 2MG IV VERSED/FENTANYL 5OMCG IV/ ANECTINE 70MG IV/ 4 AMPS OF SODIUM BICARB/ 2 AMPS OF CALCIUM GLUCONATE FOR INTUBATION
[2019-10-16] MEDS ORDERED: MIDAZOLAM 50MG-0.9% NS 50ML 50 ML BAG IV SCH (16:00)
[2019-10-16] MEDS ORDERED: MIDAZOLAM 50MG-0.9% NS 50ML 50 ML IV SCH (16:15)
[2019-10-16] MEDS ORDERED: FENTANYL 1000MCG+NS 100ML 100 ML IV SCH (16:15)
[2019-10-16] MEDS: HYDROCORTISONE SOD SUCCINATE 100 MG/2 ML VIAL IV SCH ×2 (16:38→22:19)
[2019-10-16] MEDS: SODIUM BICARB 8.4% 50ML SYRING 150 MEQ in DEXTROSE 5%-WATER 850 ML IV SCH ×2 (16:48→23:08)
--- NOTE | 2019-10-16 17:13 | NUR ---
PT CONTINUES TO BE UNSTABLE- BP LOW AND DIFFICULT TO OBTAIN. HAS DOPPLER PULSES. DIFFICULTY OBTAINING ABG .DAUGHTER JUNE WAS NOTIFIED PRIOR TO INTUBATION AND THEN I HAVE RETURNED A CALL TO HER TO GIVE HER STATUS.FULL CODE STATUS
[2019-10-16 17:20] LABS: ABG BASE EXCESS -23.5 mmol/L (-2.0-3.0); ABG HCO3 8.5 mmol/L (21.0-28.0); ABG OXYGEN SATURATION 98.2 % (95.0-99.0); ABG PCO2 40 mmHg (32-45)
[2019-10-16] MEDS ORDERED: SODIUM BICARB 50MEQ 50ML VIAL IV ONE ×2 (17:30→17:45)
[2019-10-16] MEDS ORDERED: PHENYLEPHRINE HCL 100 MG in SODIUM CHLORIDE 0.9% 250 ML IV SCH (17:30)
[2019-10-16] MEDS ORDERED: EPINEPHRINE 10 MG in SODIUM CHLORIDE 0.9% 250 ML IV SCH (17:45)
[2019-10-16] MEDS ORDERED: FENTANYL 2500MCG+NS 250ML 250 ML IV SCH (17:45)
--- NOTE | 2019-10-16 18:46 | NUR ---
DR GUSTAFSON WAS CALLED AND NOTIFIED OF PT CONTINUED DETERIORATION. HE STATED HER PROGNOSIS WAS POOR..GAVE ME ORDERS AND THEY WERE CARRIED OUT. AT TIMES BP IS UNOBTAINABLE AND PULSE OX WAVEFORM ALSO. I CALLED PT DAUGHTER BEKAH DAVID AND SPOKE TO HER ABOUT PT POOR PROGNOSIS AND HIGH RISK OF . SHE STATES HER MOTHER NEVER DISCUSSED ANY CODE STATUS AND THAT HER MOTHER NEVER TOLD THEM THEM THE GRADE OF HER CANCER. INFORMED THEM ALL IS BEING DONE FOR THE PATIENT
--- NOTE | 2019-10-16 21:00 | NUR ---
PATIENT UPDATE Pt's daughter Kimberley Bean called and asked about pt update. Made aware about pt's very critical condition, intubated state with all the vasopressors to help with the blood pressure. Daughter told me that they just had a family meeting which includes pt's , parents and children and they all decided upon a DNR status for the patient. Call witnessed by Godfrey BROWER at 2100.
--- NOTE | 2019-10-17 02:00 | NUR ---
PT Pt went from sinus js to 38 to asystole at 001, pupils fixed and dilated, Dr. Steven villasenor ER called to pronounce the pt. Officially pronounced at 29. Family members called at 39, came over to see the pt at 005. Post mortem care done, started calling SHARON at 39, finally came in contact with the rep Yonatan at 021. Ondina Napoles NP called and was made aware of the pt's demise.
[2019-10-20] MEDS ORDERED: APIXABAN 5 MG TABLET PO SCH (21:00)
== END 2019-10-17 00:30 | disposition expired | DRG 720 ==
LOC: EDH 11:53 → EDHIP 11:54 → UNDOADMIN 16:42 → EDHIP 10-15 10:40 → 3CH 10-15 20:34 → DAHIP 10-16 06:36
PROVIDERS: ADMIT Hospitalist; ATTEND Hospitalist
PROC: 0BH17EZ Insertion of Endotracheal Airway into Trachea, Via Natural or Artificial Opening (ICD-10-PCS; principal; 2019-10-16)
PROC: 5A1935Z Respiratory Ventilation, Less than 24 Consecutive Hours (ICD-10-PCS; 2019-10-16)
PROC: 5A09357 Assistance with Respiratory Ventilation, Less than 24 Consecutive Hours, Continuous Positive Airway Pressure (ICD-10-PCS; 2019-10-16)
PROC: 02HV33Z Insertion of Infusion Device into Superior Vena Cava, Percutaneous Approach (ICD-10-PCS; 2019-10-16)
DX: A41.89 Other specified sepsis (principal); K52.9 Noninfective gastroenteritis and colitis, unspecified; J96.01 Acute respiratory failure with hypoxia; D89.9 Disorder involving the immune mechanism, unspecified; Z20.828 Contact with and (suspected) exposure to other viral communicable diseases; D69.6 Thrombocytopenia, unspecified; D63.8 Anemia in other chronic diseases classified elsewhere; Z85.820 Personal history of malignant melanoma of skin; D69.59 Other secondary thrombocytopenia; G93.40 Encephalopathy, unspecified; I82.403 Acute embolism and thrombosis of unspecified deep veins of lower extremity, bilateral; J12.9 Viral pneumonia, unspecified; K74.60 Unspecified cirrhosis of liver; R65.21 Severe sepsis with septic shock; Z66 Do not resuscitate; Z79.01 Long term (current) use of anticoagulants; R53.81 Other malaise
CPT/HCPCS: 31500; 36415; 36600; 71045; 71275; 76882; 80053; 80202; 81001; 82435; 82550; 82728; 82803; 82947; 82948; 83605; 83615; 83735; 83874; 83880; 84132; 84145; 84295; 84484; 85018; 85025; 85027; 85378; 85610; 85730; 86140; 86900; 86901; 87040; 87088; 87324; 87486; 87507; 87581; 87633; 87798; 93005; 93970; 94002; 94003; 94660; 99291; C1751; C1894; G0378; J0171; J0456; J0610; J0692; J0696; J1100; J1650; J1720; J1940; J2185; J2250; J2370; J2405; J2920; J3010; J3370; J3490; J7030; J7040; J7050; J7070; Q9967; U0003